=== PATIENT | female | born 2000 | race Caucasian/White ===

== ENCOUNTER 2023-09-18 15:51 | Emergency (ER) | payer OTHER ==
[~2023-09-18] VITALS: Ht 162.6 cm; Wt 56.8 kg
[2023-09-18] MEDS ORDERED: diphenhydrAMINE 50 MG/ML 1 ML VIAL IV ONE (16:30)
[2023-09-18] MEDS ORDERED: methylPREDNISolone Sod Succ 125 MG/2 ML VIAL IV ONE (16:30)
[2023-09-18] MEDS ORDERED: PREDNISONE20 MG PO (17:02)
[2023-09-18 18:23] VITALS: BP 119/73; PULSE 83; TEMP 98
== END 2023-09-18 17:53 | disposition home or self-care (01) ==
LOC: COL.ER 15:51
DX: L50.9 Urticaria, unspecified (principal); T36.95XA Adverse effect of unspecified systemic antibiotic, initial encounter; Z88.0 Allergy status to penicillin
CPT/HCPCS: J1200; J2930